=== PATIENT | male | born 1975 | race Caucasian/White ===

== ENCOUNTER 2020-02-20 06:26 | Emergency (ER) | payer MEDICAID ==
[~2020-02-20] VITALS: Ht 172.7 cm; Wt 68.0 kg
[2020-02-20 07:15] VITALS: BP 101/81
--- NOTE | 2020-02-20 07:15 | NUR ---
TO [facility]
--- NOTE | 2020-02-20 07:31 | NUR ---
ermd in [facility] for medical evaluation.
--- NOTE | 2020-02-20 08:06 | NUR ---
novel swab collected and given to lab.
[2020-02-20 08:10] VITALS: BP 101/81
--- NOTE | 2020-02-20 08:10 | NUR ---
Patient discharged with v/s stable. Written and verbal after care instructions given and explained. Patient alert, oriented and verbalized understanding of instructions. Ambulatory with steady gait. All questions addressed prior to discharge. ID band removed. Patient advised to follow up with PMD. Rx of MOTRIN, PREDNISONE given. Patient educated on indication of medication including possible reaction and side effects. Opportunity to ask questions provided and answered.
== END 2020-02-20 08:10 | disposition home or self-care (01) ==
LOC: MED 06:26
DX: R06.02 Shortness of breath (principal); Z53.21 Procedure and treatment not carried out due to patient leaving prior to being seen by health care provider
CPT/HCPCS: U0003